=== PATIENT | female | born 1955 | race Caucasian/White ===

== ENCOUNTER 2017-09-20 23:35 | Emergency (ER) | payer OTHER ==
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
[2017-09-21 00:07] VITALS: TEMP 97.5; O2SAT 97
[2017-09-21] MEDS ORDERED: SODIUM CHLORIDE 0.9% 1000ML 1,000 ML IVS ONE (00:08)
[2017-09-21] MEDS ORDERED: POVIDONE IODINE 10 % 15 ML UD TOP ONE (00:55)
[2017-09-21] MEDS ORDERED: CHLORHEXIDINE GLUCONATE 4 % 15 ML UD TOP ONE (00:56)
--- NOTE | 2017-09-21 00:56 | CT ---
EXAM DESCRIPTION: CT of the head without contrast CLINICAL HISTORY: head injury COMPARISON: None available TECHNIQUE: Axial CT of the head obtained from the skull apex to the skull base without contrast. FINDINGS: No acute intracranial hemorrhage identified. No mass, mass effect, shift of the midline, abnormal extra-axial fluid collection or CT evidence of acute ischemic change identified. The ventricular system and sulcal spaces have normal size and contour. Scattered areas of hypodensity throughout the supratentorial white matter are nonspecific and may be related to chronic small vessel ischemic change. The visualized paranasal sinuses and the mastoids are clear. No skull fracture identified. Visualized orbits and globes are unremarkable. Atherosclerotic calcification of the intracranial internal carotid arteries. DLP:859.97 mGy-cm IMPRESSION: 1. No acute intracranial abnormality by CT criteria. This exam was performed according to our departmental dose-optimization program, which includes automated exposure control, adjustment of the mA and/or kV according to patient size and/or use of iterative reconstruction technique. Electronically signed by: Zachary Vale 09/21/2017 12:55 AM CDT
--- NOTE | 2017-09-21 00:56 | RAD ---
2 VIEWS RIGHT FOREARM RADIOGRAPHIC SERIES. INDICATIONS: Pain post injury. COMPARISONS: None. FINDINGS: Soft tissue swelling without radiopaque soft tissue foreign bodies or soft tissue gas. No fractures or dislocations. IMPRESSION: Soft tissue swelling. Otherwise, normal for age examination. Electronically signed by: Abdias Pop MD 09/21/2017 12:54 AM CDT
[2017-09-21] MEDS ORDERED: NEOMYCIN-BACITRACIN-POLYMYXIN 0.9 GM UD TOP ONE (01:49)
[2017-09-21] MEDS ORDERED: traMADol HCL 50 MG (ER DISP) # 6 TABS PO ONE (01:53)
[2017-09-21 02:14] VITALS: BP 184/98
== END 2017-09-21 02:00 | disposition home or self-care (01) ==
LOC: ER 23:35
DX: S01.312A Laceration without foreign body of left ear, initial encounter (principal); S50.11XA Contusion of right forearm, initial encounter; V94.0XXA Hitting object or bottom of body of water due to fall from watercraft, initial encounter; Y92.828 Other wilderness area as the place of occurrence of the external cause